=== PATIENT | male | born 1945 | race Two or more races ===

== ENCOUNTER 2018-10-20 17:53 | Emergency (ER) | payer OTHER ==
[~2018-10-20] VITALS: Ht 170.2 cm; Wt 69.9 kg
[~2018-10-20 17:53] MED LIST: ACETAMINOPHEN PO; CIPRO500 MG PO; COZAAR25 MG; ZOCOR5 MG
[2018-10-20] MEDS ORDERED: COZAAR100 MG (18:10)
[2018-10-20] MEDS ORDERED: AZOR 5-20 MG T1 EACH (18:11)
== END 2018-10-20 19:59 | disposition home or self-care (01) ==
LOC: ER 17:53
DX: R42 Dizziness and giddiness (principal); J06.9 Acute upper respiratory infection, unspecified

== ENCOUNTER 2018-10-24 09:36 | Outpatient (CLI) | payer OTHER ==
[~2018-10-24 09:36] MED LIST changes: +AZOR 5-20 MG T1 EACH; +COZAAR100 MG
== END 2018-10-24 09:48 | disposition home or self-care (01) ==
LOC: NUCLEAR 09:36
DX: I21.11 ST elevation (STEMI) myocardial infarction involving right coronary artery (principal)

== ENCOUNTER 2018-12-05 09:30 | Outpatient (CLI) | payer OTHER ==
[~2018-12-05] VITALS: Ht 172.7 cm; Wt 70.3 kg
== END 2018-12-05 09:45 | disposition home or self-care (01) ==
LOC: OFIC 805 09:30
DX: J31.0 Chronic rhinitis (principal); R09.81 Nasal congestion

== ENCOUNTER 2019-01-02 08:30 | Outpatient (CLI) | payer OTHER ==
[~2019-01-02] VITALS: Ht 152.4 cm; Wt 70.3 kg
== END 2019-01-02 08:45 | disposition home or self-care (01) ==
LOC: OFIC 805 08:30
DX: R09.81 Nasal congestion (principal); J31.0 Chronic rhinitis; J06.9 Acute upper respiratory infection, unspecified; J30.89 Other allergic rhinitis; H61.22 Impacted cerumen, left ear

== ENCOUNTER 2019-04-07 22:35 | Emergency (ER) | payer OTHER ==
[~2019-04-07] VITALS: Ht 172.7 cm; Wt 73.0 kg
[2019-04-07] MEDS ORDERED: SIMVASTATIN40 MG (22:43)
[2019-04-07] MEDS ORDERED: NORVASC5 MG (22:43)
[2019-04-07] MEDS ORDERED: TAMS0.4C (22:44)
[2019-04-07] MEDS ORDERED: TESSALON PERLE100 M1 PO (22:51)
[2019-04-07] MEDS ORDERED: PROMETH-CODEIN 65 ML PO (22:51)
== END 2019-04-07 23:50 | disposition home or self-care (01) ==
LOC: ER 22:35
DX: R05 Cough (principal)

== ENCOUNTER 2019-04-25 05:44 | Emergency (ER) | payer OTHER ==
[~2019-04-25] VITALS: Ht 172.7 cm; Wt 69.9 kg
[~2019-04-25 05:44] MED LIST changes: +NORVASC5 MG; +PROMETH-CODEIN 65 ML PO; +SIMVASTATIN40 MG; +TAMS0.4C; +TESSALON PERLE100 M1 PO
[2019-04-25] MEDS ORDERED: PROTONIX40 MG (06:20)
== END 2019-04-25 13:46 | disposition home or self-care (01) ==
LOC: ER 05:44
DX: J45.998 Other asthma (principal)

== ENCOUNTER 2019-05-11 22:50 | Emergency (ER) | payer OTHER ==
[~2019-05-11] VITALS: Ht 172.7 cm; Wt 69.9 kg
[~2019-05-11 22:50] MED LIST changes: +PROTONIX40 MG
[2019-05-12] MEDS ORDERED: NASONEX17 GM NASAL (01:44)
== END 2019-05-12 01:55 | disposition home or self-care (01) ==
LOC: ER 22:50
DX: J32.8 Other chronic sinusitis (principal)

== ENCOUNTER 2019-10-14 09:44 | Outpatient (CLI) | payer OTHER ==
[~2019-10-14 09:44] MED LIST changes: +NASONEX17 GM NASAL
[2019-10-14] MEDS ORDERED: FLONASE ALLERG9.9 ML NASAL (13:30)
[2019-10-14] MEDS ORDERED: SINGULAIR10 MG PO (13:31)
== END 2019-10-14 13:30 | disposition home or self-care (01) ==
LOC: OFIC 805 09:44
DX: R05 Cough (principal); R09.81 Nasal congestion; J31.0 Chronic rhinitis; J06.9 Acute upper respiratory infection, unspecified

== ENCOUNTER 2019-11-18 08:02 | Outpatient (CLI) | payer OTHER ==
[~2019-11-18 08:02] MED LIST changes: +FLONASE ALLERG9.9 ML NASAL; +SINGULAIR10 MG PO
== END 2019-11-18 08:24 | disposition home or self-care (01) ==
LOC: LAB 08:02
DX: J11.1 Influenza due to unidentified influenza virus with other respiratory manifestations (principal); J20.8 Acute bronchitis due to other specified organisms

== ENCOUNTER 2021-10-11 09:42 | Emergency (ER) | payer OTHER ==
[~2021-10-11] VITALS: Ht 170.2 cm; Wt 70.8 kg
== END 2021-10-11 15:44 | disposition home or self-care (01) ==
LOC: ER 09:42
DX: R22.42 Localized swelling, mass and lump, left lower limb (principal); Z87.828 Personal history of other (healed) physical injury and trauma; I10 Essential (primary) hypertension

== ENCOUNTER 2021-12-30 15:23 | Emergency (ER) | payer OTHER ==
[~2021-12-30] VITALS: Ht 172.7 cm; Wt 67.1 kg
[2021-12-30] MEDS ORDERED: LEVOCETIRIZINE D5 MG PO (15:33)
[2021-12-30] MEDS ORDERED: FAMOTIDINE20 MG PO (15:33)
[2021-12-30] MEDS ORDERED: DUTASTERIDE0.5 MG PO (15:34)
== END 2021-12-30 18:13 | disposition home or self-care (01) ==
LOC: ER 15:23
DX: R42 Dizziness and giddiness (principal); N40.0 Benign prostatic hyperplasia without lower urinary tract symptoms

== ENCOUNTER 2022-04-22 08:31 | Emergency (ER) | payer OTHER ==
[~2022-04-22] VITALS: Ht 170.2 cm; Wt 63.0 kg
[~2022-04-22 08:31] MED LIST changes: +DUTASTERIDE0.5 MG PO; +FAMOTIDINE20 MG PO; +LEVOCETIRIZINE D5 MG PO
== END 2022-04-22 13:25 | disposition home or self-care (01) ==
LOC: ER 08:31
DX: R63.4 Abnormal weight loss (principal); R35.1 Nocturia; I10 Essential (primary) hypertension

== ENCOUNTER 2022-07-04 09:50 | Outpatient (CLI) | payer OTHER | END 2022-07-04 09:57 | disposition home or self-care (01) | LOC: SONOGRAMA 09:50 | PROVIDERS: ATTEND Internal Medicine | DX: E04.2 Nontoxic multinodular goiter (principal) ==

== ENCOUNTER 2022-12-24 14:38 | Emergency (ER) | payer OTHER ==
[~2022-12-24] VITALS: Ht 170.2 cm; Wt 67.1 kg
[2022-12-27] MEDS ORDERED: MYRBETRIQ25 MG PO (21:55)
[2022-12-27] MEDS ORDERED: OXYBUTYNIN CHLO15 MG PO (21:55)
[2022-12-27] MEDS ORDERED: AZITHROMYCIN250 MG PO (21:56)
== END 2022-12-24 17:50 | disposition home or self-care (01) ==
LOC: ER 14:38
DX: G44.89 Other headache syndrome (principal); R53.81 Other malaise

== ENCOUNTER → 2022-12-27 | Emergency (ER) | payer OTHER ==
[~2022-12-27] VITALS: Ht 170.2 cm; Wt 68.5 kg
[~2022-12-27] MED LIST changes: +AZITHROMYCIN250 MG PO; +MYRBETRIQ25 MG PO; +OXYBUTYNIN CHLO15 MG PO
== END | disposition home or self-care (01) ==
LOC: ER 21:44
DX: U07.1 COVID-19 (principal)

== ENCOUNTER 2023-05-08 03:41 | Emergency (ER) | payer OTHER ==
[~2023-05-08] VITALS: Ht 170.2 cm; Wt 69.4 kg
[2023-05-09] MEDS ORDERED: SIMVASTATIN20 MG PO (05:48)
[2023-05-09] MEDS ORDERED: OMEPRAZOLE40 MG PO (05:48)
[2023-05-09] MEDS ORDERED: AMLODIPINE BESY10 MG PO (05:48)
[2023-05-09] MEDS ORDERED: LOSARTAN POTAS100 MG PO (05:48)
[2023-05-09] MEDS ORDERED: TAMSULOSIN HCL0.4 MG PO (05:48)
== END 2023-05-08 05:20 | disposition home or self-care (01) ==
LOC: ER 03:42
DX: K29.70 Gastritis, unspecified, without bleeding (principal); K21.9 Gastro-esophageal reflux disease without esophagitis
CPT/HCPCS: 93005; 96365; 96372; 99284; J2765; J3490

== ENCOUNTER 2023-05-09 05:36 | Emergency (ER) | payer OTHER ==
[~2023-05-09] VITALS: Ht 170.2 cm; Wt 70.8 kg
[2023-05-09] MEDS ORDERED: OMEPRAZOLE40 MG PO (05:48)
[2023-05-09] MEDS ORDERED: TAMSULOSIN HCL0.4 MG PO (05:48)
[2023-05-09] MEDS ORDERED: SIMVASTATIN20 MG PO (05:48)
[2023-05-09] MEDS ORDERED: AMLODIPINE BESY10 MG PO (05:48)
[2023-05-09] MEDS ORDERED: LOSARTAN POTAS100 MG PO (05:48)
[2023-05-09 07:54] LABS: HEMATOCRIT 37.4 % (39.0-48.0); HEMOGLOBIN 12.4 g/dL (13-16.00); MEAN CELL VOLUME 93.4 fL (80.0-100.00); MEAN CORPUSCULAR HEMOGLOBIN 30.9 pg (27.00-32.0); MEAN CORPUSCULAR HGB CONC 33.1 g/dl (32.0-36.0); PLATELET COUNT 228 K/uL (150-450); RED CELL DISTRIBUTION WIDTH 13.9 % (11.5-14.5)
[2023-05-09 08:18] LABS: INR 1.09; PARTIAL THROMBOPLASTIN TIME 27.9 SECONDS (22.0-34.0); PROTHROMBIN TIME 11.4 SECONDS (9.0-11.5)
[2023-05-09 08:27] LABS: ALBUMIN 3.2 gm/dL (3.4-5.0); BILIRUBIN TOTAL 0.56 mg/dL (0.3-1.2); BILIRUBIN,CONJUGATED 0.21 mg/dL (0.0-0.2); BILIRUBIN,UNCONJUGATED 0.35 mg/dL (0.0-0.6); CALCIUM 9.1 mg/dL (8.5-10.1); CREATININE SERUM 0.93 mg/dL (0.70-1.30); GFR 78.38; GLOBULINA 3.7 G/DL (2.4-3.5); POTASSIUM 4.17 mEq/L (3.5-5.1); TOTAL PROTEIN 6.9 gm/dL (6.4-8.2)
[2023-05-09 09:47] LABS: URINE APPEARANCE Clear; URINE BILIRRUBIN Negative (NEGATIVE); URINE BLOOD Trace; URINE COLOR Yellow; URINE GLUCOSE Negative (NEGATIVE); URINE LEUKOCYTE Negative; URINE NITRATE Negative; URINE PROTEIN Negative (NEGATIVE); URINE UROBILINOGEN 0.2 E.U./dl
[2023-05-09 09:54] LABS: URINE WBC 1.9 uL (0.0-23.2)
[2023-05-09 10:12] LABS: URINE BACTERIA 2.5 uL (0.0-1933)
== END 2023-05-09 18:11 | disposition home or self-care (01) ==
LOC: ER 05:36
PROVIDERS: General Practice
DX: K57.12 Diverticulitis of small intestine without perforation or abscess without bleeding (principal); N39.0 Urinary tract infection, site not specified; I10 Essential (primary) hypertension

== ENCOUNTER 2023-07-06 07:02 | Outpatient (CLI) | payer OTHER ==
[~2023-07-06 07:02] MED LIST changes: +AMLODIPINE BESY10 MG PO; +LOSARTAN POTAS100 MG PO; +OMEPRAZOLE40 MG PO; +SIMVASTATIN20 MG PO; +TAMSULOSIN HCL0.4 MG PO
== END 2023-07-06 07:07 | disposition home or self-care (01) ==
LOC: TOM 07:02
PROVIDERS: ATTEND Internal Medicine Gastroenterology
DX: R10.30 Lower abdominal pain, unspecified (principal)
CPT/HCPCS: 74177; Q9965

== ENCOUNTER 2024-11-05 06:33 | Emergency (ER) | payer OTHER ==
[~2024-11-05] VITALS: Ht 170.2 cm; Wt 70.8 kg
[2024-11-05] MEDS ORDERED: TOLTERODINE TART4 MG PO (07:19)
[2024-11-05] MEDS ORDERED: PEPCID AC10 MG (07:24)
[2024-11-05] MEDS ORDERED: KETOROLAC TROMETHAMINE 60 MG VIAL IM STA (08:12)
[2024-11-05] MEDS ORDERED: KETOROLAC TROMETHAMINE 60 MG VIAL IM ONE (08:19)
[2024-11-05 10:49] VITALS: BP 153/94; O2SAT 100
== END 2024-11-05 10:50 | disposition home or self-care (01) ==
LOC: ER 06:34
DX: M54.50 Low back pain, unspecified (principal)
CPT/HCPCS: 72100; 96372; 99283; J1885